=== PATIENT | male | born 1955 | race Caucasian/White ===

== ENCOUNTER 2024-04-13 07:23 | Day surgery (SDC) | payer MEDICARE, OTHER ==
[~2024-04-13] VITALS: Ht 180.3 cm; Wt 90.7 kg
[~2024-04-13 07:23] MED LIST: AMBI10TA; LEXA1TAB; LEXA1TAB2; MIDAZOLAM INJ 2MG/2ML VIAL As Ordered ONE; OMEG10002 PO; PHENYLEPHRINE 10% OPHTH SOL 5ML OS PRN; THERTAB52 PO; VITA100093 PO; fentaNYL 100 MCG/2 ML INJECTION As Ordered ONE
[2024-04-13] MEDS: PHENYLEPHRINE 2.5% OPHTH SOL 2ML OS SCH (08:01)
[2024-04-13] MEDS: ATROPINE SULFATE 1% OPHTH SOLN 2ML BTL OS SCH (08:01)
[2024-04-13] MEDS: LIDOCAINE 3.5 % 1ML OPHTH TOPICAL GEL OU ONE (08:01)
[2024-04-13] MEDS: TROPICAMIDE 1% OPHTH SOLN 15ML OS SCH (08:01)
[2024-04-13] MEDS: OFLOXACIN 0.3 % (OCUFLOX) OPTH SOL 5ML OS ONE (08:01)
[2024-04-13] MEDS: BSS IRRIG/VANCO(10MG)/TOBRA(5MG)/EPINEPH(1:1000-0.5CC)500ML BAG-ORONLY As Ordered ONE (08:26)
[2024-04-13] MEDS: CEFUROXIME 1MG/0.1ML INTRACAMERAL INJ As Ordered ONE (08:26)
[2024-04-13] MEDS: LIDOCAINE 1% SDV 5ML VIAL As Ordered ONE (08:26)
[2024-04-13] MEDS: PROVISC 10 MG/ML 0.85ML SYRINGE As Ordered ONE (08:33)
[2024-04-13 08:40] VITALS: BP 159/86; TEMP 97.4; O2SAT 98
== END 2024-04-13 08:55 | disposition home or self-care (01) ==
LOC: M SDC 07:23
PROVIDERS: ATTEND Ophthalmology
DX: H25.12 Age-related nuclear cataract, left eye (principal); K21.9 Gastro-esophageal reflux disease without esophagitis; Z79.899 Other long term (current) drug therapy
CPT/HCPCS: 66984; 92015; A4649; J0697; J2250; J3010; V2788

== ENCOUNTER 2024-04-20 07:27 | Day surgery (SDC) | payer MEDICARE, OTHER ==
[~2024-04-20] VITALS: Ht 180.3 cm; Wt 89.8 kg
[~2024-04-20 07:27] MED LIST changes: +PHENYLEPHRINE 10% OPHTH SOL 5ML OD PRN; -PHENYLEPHRINE 10% OPHTH SOL 5ML OS PRN
[2024-04-20] MEDS: LIDOCAINE 1% SDV 5ML VIAL As Ordered ONE (08:07)
[2024-04-20] MEDS: BSS IRRIG/VANCO(10MG)/TOBRA(5MG)/EPINEPH(1:1000-0.5CC)500ML BAG-ORONLY As Ordered ONE (08:07)
[2024-04-20] MEDS: CEFUROXIME 1MG/0.1ML INTRACAMERAL INJ As Ordered ONE (08:09)
[2024-04-20] MEDS: OFLOXACIN 0.3 % (OCUFLOX) OPTH SOL 5ML OD ONE (08:34)
[2024-04-20] MEDS: TROPICAMIDE 1% OPHTH SOLN 15ML OD SCH (08:34)
[2024-04-20] MEDS: LIDOCAINE 3.5 % 1ML OPHTH TOPICAL GEL OU ONE (08:34)
[2024-04-20] MEDS: PHENYLEPHRINE 2.5% OPHTH SOL 2ML OD SCH (08:34)
[2024-04-20] MEDS: ATROPINE SULFATE 1% OPHTH SOLN 2ML BTL OD SCH (08:34)
[2024-04-20 08:35] VITALS: BP 134/79; TEMP 97.1; O2SAT 96
[2024-04-20] MEDS ORDERED: ACETAMINOPHEN 1000MG 100ML IV BAG As Ordered ONE (12:52)
[2024-04-20] MEDS ORDERED: propofoL 200 MG/20 ML VIAL As Ordered ONE (12:52)
[2024-04-20] MEDS ORDERED: LIDOCAINE 2% 100MG/5ML SDV (FOR ANES.) As Ordered ONE (12:52)
[2024-04-20] MEDS ORDERED: PHENYLephrine 500MCG 5ML (100MCG/ML) SYRINGE As Ordered ONE (12:52)
[2024-04-20] MEDS ORDERED: ONDANSETRON 4MG 2ML VIAL As Ordered ONE (12:52)
== END 2024-04-20 09:00 | disposition home or self-care (01) ==
LOC: M SDC 07:27
PROVIDERS: ATTEND Ophthalmology
DX: H25.11 Age-related nuclear cataract, right eye (principal); K21.9 Gastro-esophageal reflux disease without esophagitis; Z79.899 Other long term (current) drug therapy
CPT/HCPCS: 66984; 92015; J0131; J0697; J2250; J2371; J2405; J3010; V2788